=== PATIENT | female | born 1975 | race Caucasian/White ===

== ENCOUNTER → 2017-09-09 11:01 | Outpatient (POV) | payer OTHER, SELFPAY ==
[2017-09-09 11:13] VITALS: BP 147/85; PULSE 58; RESP 18
--- NOTE | 2017-09-09 13:04 | HMH.PMCON ---
Assessment and Plan (1) CRPS (complex regional pain syndrome type I) Current visit: Yes Status: Chronic Category: Medical Code(s): G90.50 - Complex regional pain syndrome I, unspecified - Assessment and plan all Dx Assessment and Plan for all problems:: The patient information on neuro stimulation. Patient is going to review the information and contact our office if she is interested in this. Patient is not a narcotic candidate at this time. This note was dictated using voice recognition software and may contain errors or omissions HPI - Data of Consult Consult date: 09/09/17 Requesting Physician: Lucía Portillo APRN Primary Care Provider: Thai Antoine - Consult Narrative Reason for consult: Bilateral foot pain History of present illness: Ms. Cope is a 42 year old female who presents today for consultation in regards to her bilateral foot pain. Patient states she fell 26 years ago and broke both of her P feet. Patient did not have any surgery. Patient did not follow-up with a advanced manufacturing consultant. Patient was seen in the ER and had one foot casted and the other one splinted. 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 Patient has been to physical therapy and is also utilized ultrasound therapy. Patient had gastric bypass surgery and lost 240 pounds. Patient states that that did help the some of her back pain along with her foot pain. Patient's tried and failed Lortab, Neurontin, Flexeril, Elavil, ibuprofen, naproxen, Zoloft. Patient was on [place] from her primary care physician however patient failed a drug screen 2 times during this time and stated that she was taking more medication than prescribed to her. Patient and I discussed that she is not a narcotic candidate. Patient and I did discuss neuro stimulation however. Patient rates her pain a 7 out of 10 today. She states elevation and relaxing helps with her pain. CC: Lucía Portillo APRN [facility] History I have reviewed the patient's past medical history: Yes Medical History: Reports:: Hypertension Other Medical History: Reports: Arthritis Laterality Cases: Left: Arthroscopy Shoulder Other Surgeries: Yes: BSO, Cholecystectomy, - *Social History Alcohol Intake: never Occupational Status: employed Housing: house - Psychiatric History Expresses thoughts of harming self/others: None Suicide Plan Description: No Plan *Family Hx:: Unable to obtain Review of Systems - Review of Systems ROS General: no recent weight change, no fever, no sleep disturbances Respiratory: no cough, no shortness of air, no recurring pulmonary infections Cardiovascular/Peripheral Vascular: No chest pain, No palpitations, no edema, no shortness of breath. Gastrointestinal: no incontinence, normal bowel movements reported Genitourinary: no incontinence Musculoskeletal: Bilateral foot pain, neck pain Psychiatric: normal mood/ affect Neurological: [denies weakness in extremities], [denies balance issues] Meds Allergies Allergy/AdvReac Type Severity Reaction Status Date / Time codeine Allergy Severe HIVES,SEVERE Unverified 03/19/17 14:09 RASH ibuprofen Allergy Severe HIVES,SEVERE Unverified 03/19/17 14:09 RASH naproxen Allergy Severe HIVES,SEVERE Unverified 03/19/17 14:09 RASH Objective Vital signs: Pulse Resp BP 58 L 18 147/85 09/09/17 11:13 09/09/17 11:13 09/09/17 11:13 Narrative: Physical Exam General: Alert and oriented x3, no acute distress, pleasant and cooperative, [on room air] Lungs: Resps E/U, Symmetrical chest expansion, Eyes: PERRL Musculoskeletal: Flexion and extension of lumbar spine somewhat guarded secondary to pain, deep tendon reflexes normal, strength in upper and lower extremities [5/5], [abnormal gait noted] Neurological: speech clear, operations intelligence superintendent equal, no gross sensory deficits Opioid Risk Tool
--- NOTE | 2017-09-09 13:07 | P.CONS_ITS ---
Assessment and Plan (1) CRPS (complex regional pain syndrome type I) Current visit: Yes Status: Chronic Category: Medical Code(s): G90.50 - Complex regional pain syndrome I, unspecified - Assessment and plan all Dx Assessment and Plan for all problems:: The patient information on neuro stimulation. Patient is going to review the information and contact our office if she is interested in this. Patient is not a narcotic candidate at this time. This note was dictated using voice recognition software and may contain errors or omissions HPI - Data of Consult Consult date: 09/09/17 Requesting Physician: Lucía Portillo APRN Primary Care Provider: Thai Antoine - Consult Narrative Reason for consult: Bilateral foot pain History of present illness: Ms. Cope is a 42 year old female who presents today for consultation in regards to her bilateral foot pain. Patient states she fell 26 years ago and broke both of her P feet. Patient did not have any surgery. Patient did not follow-up with a terminal operations manager. Patient was seen in the ER and had one foot casted and the other one splinted. 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 Patient has been to physical therapy and is also utilized ultrasound therapy. Patient had gastric bypass surgery and lost 240 pounds. Patient states that that did help the some of her back pain along with her foot pain. Patient's tried and failed Lortab, Neurontin, Flexeril, Elavil, ibuprofen, naproxen, Zoloft. Patient was on [place] from her primary care physician however patient failed a drug screen 2 times during this time and stated that she was taking more medication than prescribed to her. Patient and I discussed that she is not a narcotic candidate. Patient and I did discuss neuro stimulation however. Patient rates her pain a 7 out of 10 today. She states elevation and relaxing helps with her pain. CC: Lucía Portillo APRN [facility] History I have reviewed the patient's past medical history: Yes Medical History: Reports:: Hypertension Other Medical History: Reports: Arthritis Laterality Cases: Left: Arthroscopy Shoulder Other Surgeries: Yes: BSO, Cholecystectomy, - *Social History Alcohol Intake: never Occupational Status: employed Housing: house - Psychiatric History Expresses thoughts of harming self/others: None Suicide Plan Description: No Plan *Family Hx:: Unable to obtain Review of Systems - Review of Systems ROS General: no recent weight change, no fever, no sleep disturbances Respiratory: no cough, no shortness of air, no recurring pulmonary infections Cardiovascular/Peripheral Vascular: No chest pain, No palpitations, no edema, no shortness of breath. Gastrointestinal: no incontinence, normal bowel movements reported Genitourinary: no incontinence Musculoskeletal: Bilateral foot pain, neck pain Psychiatric: normal mood/ affect Neurological: [denies weakness in extremities], [denies balance issues] Meds Allergies Allergy/AdvReac Type Severity Reaction Status Date / Time codeine Allergy Severe HIVES,SEVERE Unverified 03/19/17 14:09 RASH ibuprofen Allergy Severe HIVES,SEVERE Unverified 03/19/17 14:09 RASH naproxen Allergy Severe HIVES,SEVERE Unverified 03/19/17 14:09 RASH Objective Vital signs: Pulse Resp BP 58 L 18 147/85 09/09/17
== END ==
PROVIDERS: PCP Internal Medicine; Visit Provider Clinical Nurse Specialist Family Health
DX: G90.50 Complex regional pain syndrome I, unspecified (principal)
CPT/HCPCS: 99202

== ENCOUNTER → 2018-10-06 12:40 | Outpatient (POV) | payer OTHER, SELFPAY | PROVIDERS: PCP Specialist; Visit Provider Specialist | DX: G90.50 Complex regional pain syndrome I, unspecified (principal); M79.609 Pain in unspecified limb; R20.2 Paresthesia of skin | CPT/HCPCS: 95886; 95910 ==

== ENCOUNTER 2018-12-23 15:00 | Outpatient (RCR) | payer OTHER, SELFPAY ==
--- NOTE | 2018-12-09 16:28 | HMH.PTOPEV ---
PT Outpatient Evaluation Rehab PT Outpatient Evaluation Start: 12/09/18 15:13 Freq: Status: Active Protocol: Document 12/09/18 15:44 PDESEROUX (Rec: 12/09/18 16:28 PDESEROUX [id number]) Electronically Signed By Porter Potts, PT 12/09/18 15:44 Outpatient Therapy Subjective History Subjective History Pt. is a 43 year old female who presents to outpatient PT for complaints of chronic and constant bilateral heel P!(R>L) of insidious onset 4 months ago. Pt. reports no symptom relief with injections and 3 bouts of steroids. Recent diagnostic imaging positive for a moderate spur on the R per pt. report. Recent NCV test negative per pt. report. Current medications include Welbutrin and Zoloft. PMH includes R shoulder arthroscopic sx., 2 C-sections , Cholecystectomy, Migraines, Anxiety, and Gastric sleeve surgery. Chief Complaint Pain Symptom Type Other Symptoms Relieved By Rest/Positioning Symptoms Aggravated By Standing,Walking Prior Functional Limitations None Current Functional Limitations Housework,Sleeping,Standing, Squatting,Recreation Activity, Walking,Stairs,Balance Symptom Description Constant and Continuous Level of pain today (0-10) 4 Pain scale - at its best (0-10) 4 Pain scale - at its worst (0-10) 6 Ankle/Foot Eval Gait Observation General Gait Pattern Observation Antalgic Gait Assistive Device Ambulation Assistive Device None Palpation Tenderness bilateral Ankle/Foot Palpation Findings Tenderness Ankle/Foot Palpation Overall Comment grade 4 +TTP bilateral achilles tendon/plantar fascia calcaneal origination ATF TTP negative PTF TTP negative CF TTP negative Deltoid ligament TTP negative ROM left Ankle/Foot Dorsiflexion w/Knee Extended +10 Active Range Motion (degrees) Ankle/Foot Dorsiflexion w/Knee Extended +3 Passive Range (degrees) Ankle/Foot Plantar Flexion Active Range 60 of Motion (degrees) Ankle/Foot Eversion Active Range of 12 Motion (degrees) Ankle/Foot Eversion P
== END 2019-01-12 14:00 | disposition home or self-care (01) ==
LOC: PT.CARL 15:00
PROVIDERS: PCP Specialist; Visit Provider Podiatrist
DX: M72.2 Plantar fascial fibromatosis (principal)
CPT/HCPCS: 97014; 97110; 97163; G0283

== ENCOUNTER → 2020-05-30 11:54 | Outpatient (POV) | payer OTHER, SELFPAY ==
[2020-05-30 12:23] VITALS: BP 100/81; PULSE 71; RESP 18; TEMP 36.8; O2SAT 98; BMI 42.9
--- NOTE | 2020-05-30 13:10 | HMH.PMCON ---
Assessment and Plan (1) CRPS (complex regional pain syndrome type I) Status: Chronic Qualifiers: Complex regional pain syndrome affected site: upper extremity Laterality: right Qualified Code(s): G90.511 - Complex regional pain syndrome I of right upper limb Category: Medical Code(s): G90.50 - Complex regional pain syndrome I, unspecified - Assessment and plan all Dx Assessment and Plan for all problems:: Patient up for a right stellate ganglion block with physical therapy following. We will also set her up with compounding cream with new gabapentin. I will follow-up with her after her block reassess her symptoms at that time. She has been instructed to call the office if she has any issues prior to her next appointment. Dr. Jacobsen has reviewed this note and agrees with this plan of care. This note was dictated using voice recognition software and may contain errors or omissions HPI - Data of Consult Consult date: 05/30/20 Requesting Physician: Lucía Portillo APRN Primary Care Provider: Flakita Sarmiento APRN - Consult Narrative Reason for consult: Hand pain History of present illness: Ms. Cope is a 45 year old female who presents today for consultation regards to her right hand pain. Patient had carpal tunnel surgery several months ago. Since then she developed an infection after this is healed she began to exhibit signs of complex regional pain syndrome. This includes allodynia, color changes, temperature changes, swelling. Patient has extreme pain and is unable to grab anything palpation is almost impossible due to her extreme pain. There are noted color changes and temperature changes to the right hand. Patient's right hand also notably swollen. Patient is unable to take gabapentin due to previous anaphylaxis. At this time she is unable to take Lyrica as well. Patient is on Wellbutrin and unable to take Cymbalta or amitriptyline. We discussed nerve blocks, compounding cream, physical therapy. She rates her pain today a 5 out of 10 CC: Lucía Portillo APRN [facility] History I have reviewed the patient's past medical history: Yes Medical History: Reports:: Anxiety, Hypertension Denies:: Cancer, Diabetes Mellitus Type 1, Diabetes Mellitus Type 2, MRSA *Have you ever received a pneumonia vaccine?: No *Have you received a flu vaccine this season?: No Other Medical History: Reports: Arthritis, Sinus Problems Laterality Cases: Right: Arthroscopy Shoulder, Bilateral: Carpal Tunnel Release Other Surgeries: Yes: BSO, Cholecystectomy, Amputation: No Fractures: Yes - *Social History Smoking Status: Never smoker Alcohol Intake: never Alcohol Intake Frequency:: holidays/special occasions only *Occupational Status:: other Housing: apartment *Travel in the last 8 weeks: None - Psychiatric History Pschychiatric History:: Reports:: Anxiety Family Hx:: Diabetes, Heart Attack, Hypertension, Hyperlipidemia Review of Systems - Review of Systems ROS General: no recent weight change, no fever, no sleep disturbances Respiratory: no cough, no shortness of air, no recurring pulmonary infections Cardiovascular/Peripheral Vascular: No chest pain, No palpitations, no edema, no shortness of breath. Gastrointestinal: no new onset incontinence, normal bowel movements reported Genitourinary: no new onset incontinence Musculoskeletal: right hand pain Psychiatric: normal mood/ affect, Neurological: Weakness right upper extremity, burning right upper extremity, color changes right upper extremity, [denies new onset balance issues] Meds Home Medications Medication Instructions Recorded Confirmed Type SUMAtriptan succinate [Imitrex 25 mg PO NEEDED PRN 09/09/17 05/30/20 History 25mg Tablet] Aspirin [Aspirin 81mg EC Tab] 81 mg PO DAILY 05/30/20 05/30/20 History Topiramate 100 mg PO BID 05/30/20 05/30/20 History Trazodone HCl 100 mg PO HS 05/30/20 05/30/20 History Vortioxetine Hydr
== END ==
PROVIDERS: PCP Nurse Practitioner; Visit Provider Clinical Nurse Specialist Family Health
DX: G90.511 Complex regional pain syndrome I of right upper limb (principal)
CPT/HCPCS: 99202; G0463

== ENCOUNTER 2020-06-03 10:23 | Day surgery (SDC) | payer OTHER, SELFPAY ==
[2020-06-03 11:31] VITALS: BP 134/66; PULSE 60; RESP 14; TEMP 36.4; O2SAT 99; BMI 42.0
[2020-06-03 11:45] VITALS: BP 133/74; BP 138/78; PULSE 84; PULSE 85; RESP 18; O2SAT 99
--- NOTE | 2020-06-03 11:49 | HMH.PMPROC ---
- Procedure Date: 06/03/20 Time: 11:49 Anesthesiologist:: Aldo Jacobsen MD Complications:: None Pre-procedure Diagnosis:: CRPS type I right upper extremity Post-procedure Diagnosis:: Same Indications for Procedure:: Patient is a pleasant 45-year-old white female who we are treating for complex regional pain syndrome type one of the right upper extremity. She has right hand pain after carpal tunnel surgery almost a year ago. She has developed autonomic symptoms of her right hand and wrist including swelling, discoloration, temperature changes and increased pain with decreased movement. She is undergone physical therapy without relief of her symptoms. We will do a stellate ganglion block of the right upper extremity today followed by physical therapy to help her with her pain symptoms. Procedure Details:: Right stellate ganglion block under fluoroscopy Informed consent was obtained risk and benefits of the procedure were explained to the patient. Patient was taken the procedure room. The right neck was prepped using ChloraPrep. A 25-gauge needle was used to contact the transverse process of the C7 vertebral body. Needle placement was confirmed with dye. After this we injected 20 mL of lidocaine 1% with Depo-Medrol 80 mg into the area of the right stellate ganglion to help with pain symptoms. Patient tolerated procedure well with no complications. We will follow this up with physical therapy today we will see her back next week we will plan on repeat right stellate ganglion block if needed. Plan and Disposition:: We will plan on repeat right stellate ganglion block if needed. We will follow up and reevaluate her symptoms at this time.
[2020-06-03 12:15] VITALS: BP 135/86; PULSE 57; RESP 18; TEMP 36.4; O2SAT 99
== END 2020-06-03 11:50 | disposition home or self-care (01) ==
LOC: SC.PAINP 10:25
PROVIDERS: PCP Nurse Practitioner; Visit Provider Anesthesiology
DX: G90.511 Complex regional pain syndrome I of right upper limb (principal); I10 Essential (primary) hypertension; M19.90 Unspecified osteoarthritis, unspecified site; F41.9 Anxiety disorder, unspecified; Z88.6 Allergy status to analgesic agent; K21.9 Gastro-esophageal reflux disease without esophagitis; F32.9 Major depressive disorder, single episode, unspecified; G43.909 Migraine, unspecified, not intractable, without status migrainosus
CPT/HCPCS: 64510; 77003; J1040; Q9966

== ENCOUNTER 2020-06-03 11:58 | Outpatient (RCR) | payer OTHER, SELFPAY ==
--- NOTE | 2020-06-03 13:39 | HMH.OTOPEV ---
OT Inpatient Evaluation Rehab OT Outpatient Eval Start: 06/03/20 13:24 Freq: Status: Active Protocol: Document 06/03/20 13:24 JOSEFA (Rec: 06/03/20 13:38 [facility] [id number][facility] Electronically Signed By Javier Powers OT 06/03/20 13:24 Outpatient Therapy Subjective History Subjective History Pt is a 45 year old female who reports to therapy for initial evaluation to R hand/ wrist. 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 Since these surgeries she has had significant nerve pain in right hand and up her right arm. Pt explains her entire hand and arm is extremely sensitive with burning/ numbness sensation. She is right handed and she is unable to use the RUE due to her symptoms. Pt does demonstrate with decreased AROM/Strength at right wrist. She recently went to pain management who have dx her with CRPS of right hand. Today pt was given Stellate ganglion block to RUE for evaluation and treatment of right hand. Pt will continue to be seen weekly in order to address all deficits. Chief Complaint Pain,Weakness,Decreased Product Development Scientist Strength Symptom Type Sharp,Burning,Numbness, Shooting Symptoms Relieved By Nothing Symptoms Aggravated By Physical Activity,Lifting Prior Functional Limitations None Current Functional Limitations Reaching,Lifting,Housework, Dressing,Sleeping,Recreation Activity Symptom Description Constant but Variable Level of pain today (0-10) 2 Pain scale - at its best (0-10) 2 Pain scale - at its worst (0-10) 10 Wrist/Hand Eval Wrist Range of Motion Right Wrist Extension Active Range of Motion ( 25 degrees degrees) Wrist Flexion Active Range of Motion ( 35 degrees degrees) Wrist Radial Deviation Active Range of 10 degrees Motion (degrees) Wrist Ulnar Deviation Active Range of 10 degrees Motion (degrees)
== END 2020-06-03 11:59 | disposition home or self-care (01) ==
LOC: OT 11:58
PROVIDERS: PCP Nurse Practitioner; Visit Provider Clinical Nurse Specialist Family Health
DX: G90.511 Complex regional pain syndrome I of right upper limb (principal)
CPT/HCPCS: 97166

== ENCOUNTER → 2020-07-18 10:31 | Outpatient (POV) | payer OTHER, SELFPAY ==
--- NOTE | 2020-07-18 11:08 | HMH.PAINSOAP ---
[facility] Pain Management SOAP Note Subjective:: Patient is a pleasant 45-year-old white female who we are treating for CRPS type one of the right upper extremity. Patient is following up after right stellate ganglion block and physical therapy. Patient got significant relief over 80%. Pain is beginning to return she would like to repeat this she rates her pain today a 5 out of 10. She has notably less swelling in that area. Patient does still have discoloration temperature changes. Patient is unable to take gabapentin or Lyrica due to anaphylactic reaction. ROS General: no recent weight change, no fever, no sleep disturbances Respiratory: no cough, no shortness of air, no recurring pulmonary infections Cardiovascular/Peripheral Vascular: No chest pain, No palpitations, no edema, no shortness of breath. Gastrointestinal: no new onset incontinence, normal bowel movements reported Genitourinary: no new onset incontinence Musculoskeletal: Right arm pain Psychiatric: normal mood/ affect Neurological: [denies new onset weakness in extremities], [denies new onset balance issues] Objective:: Physical Exam General: Alert and oriented x3, no acute distress, pleasant and cooperative, [on room air] Lungs: Resps E/U, Symmetrical chest expansion, Eyes: PERRL Musculoskeletal: Range of motion right upper extremity somewhat guarded secondary to pain, deep tendon reflexes normal, strength in upper and lower extremities [5/5], normal gait noted Neurological: speech clear, mechatronics technician equal, no gross sensory deficits Assessment:: CRPS type I right upper extremity Plan:: We will repeat the right stellate ganglion block and the physical therapy given the efficacy of this I do believe it would benefit her. I will follow-up with her afterwards reassess her symptoms at that time.if the patient does not get long-term relief we will discuss neuro stimulation. Dr. Jacobsen has reviewed this note and agrees with this plan of care. This note was dictated using voice recognition software and may contain errors or omissions [facility] History I have reviewed the patient's past medical history: Yes Medical History: Reports:: Anxiety, Hypertension Denies:: Cancer, Diabetes Mellitus Type 1, Diabetes Mellitus Type 2, MRSA, Seizures *Have you ever received a pneumonia vaccine?: No *Have you received a flu vaccine this season?: No Other Medical History: Reports: Arthritis, Sinus Problems. Denies: Blood Transfusion Reaction Laterality Cases: Right: Arthroscopy Shoulder, Bilateral: Carpal Tunnel Release Other Surgeries: Yes: BSO, Cholecystectomy, Amputation: No Fractures: Yes - *Social History Smoking Status: Never smoker Alcohol Intake: never Alcohol Intake Frequency:: holidays/special occasions only *Occupational Status:: unemployed Housing: house *Travel in the last 8 weeks: None - Psychiatric History Pschychiatric History:: Reports:: Anxiety Family Hx:: Diabetes, Heart Attack, Hypertension, Hyperlipidemia
[2020-07-18 11:12] VITALS: BP 136/79; PULSE 65; RESP 18; TEMP 37; O2SAT 98; BMI 41.3
== END ==
PROVIDERS: PCP Physician Assistant; Visit Provider Clinical Nurse Specialist Family Health
DX: G90.511 Complex regional pain syndrome I of right upper limb (principal)
CPT/HCPCS: 99212; G0463

== ENCOUNTER 2020-08-05 10:21 | Day surgery (SDC) | payer OTHER, SELFPAY ==
[2020-08-05 10:36] VITALS: BP 170/87; PULSE 91; RESP 18; TEMP 36.4; O2SAT 98; BMI 41.5
[2020-08-05 10:55] VITALS: BP 133/85; PULSE 85; RESP 18
[2020-08-05 10:57] VITALS: BP 138/89; PULSE 82; RESP 18; O2SAT 98
--- NOTE | 2020-08-05 11:02 | HMH.PMPROC ---
- Procedure Date: 08/05/20 Time: 11:02 Anesthesiologist:: Aldo Jacobsen MD Complications:: None Pre-procedure Diagnosis:: Complex regional pain syndrome type one of the right upper extremity Post-procedure Diagnosis:: Same Indications for Procedure:: This patient is a pleasant 45-year-old white female who we are treating for complex regional pain syndrome type one of the right upper extremity. She has had a right stellate ganglion block followed by physical therapy last visit. She was 80 to 90% better for several days. She did undergo physical therapy. We will do a repeat right stellate ganglion block today again followed by physical therapy to help her with her pain symptoms and autonomic symptoms Procedure Details:: Right stellate ganglion block Informed consent was obtained risk and benefits of the procedure were explained to the patient. Patient was taken the procedure room. The right neck was prepped using ChloraPrep. A 25-gauge needle was inserted to contact the right transverse process of the C7 vertebral body. Needle placement was confirmed with dye. After this we injected 20 mils lidocaine 1.5% plus Depo-Medrol 80 mg into the area of the right stellate ganglion. Patient tolerated the procedure well with no complications. Plan and Disposition:: Patient is to have physical therapy this afternoon. We will follow-up with her in 1 week. Will reevaluate her symptoms and plan on repeat stellate ganglion block at that time again to be followed by physical therapy.
[2020-08-05 11:05] VITALS: BP 121/74; PULSE 69; RESP 18; O2SAT 98
== END 2020-08-05 11:06 | disposition home or self-care (01) ==
PROVIDERS: PCP Nurse Practitioner; Visit Provider Anesthesiology
DX: G90.519 Complex regional pain syndrome I of unspecified upper limb (principal); I10 Essential (primary) hypertension; F41.9 Anxiety disorder, unspecified; G43.909 Migraine, unspecified, not intractable, without status migrainosus; Z88.6 Allergy status to analgesic agent; Z88.8 Allergy status to other drugs, medicaments and biological substances
CPT/HCPCS: 64510; 77003; J1040; Q9966

== ENCOUNTER 2020-08-05 11:09 | Outpatient (RCR) | payer OTHER, SELFPAY ==
--- NOTE | 2020-08-05 11:46 | HMH.OTOPEV ---
OT Inpatient Evaluation Rehab OT Outpatient Eval Start: 08/05/20 11:34 Freq: Status: Active Protocol: Document 08/05/20 11:34 ROULAKEYSHA (Rec: 08/05/20 11:45 SHAHNAZ [id number]) Electronically Signed By Marni Baron, OT 08/05/20 11:34 Outpatient Therapy Subjective History Subjective History 45 year old female referred to skilled OP OT services Complex regional pain syndrome type one of the right upper extremity. Patient verbalize having only pain in her right wrist. Patient has a PMH of CTR of the right wrist of July and October of 2019. Hx from pain management: This patient is a pleasant 45- year-old white female who we are treating for complex regional pain syndrome type one of the right upper extremity. She has had a right stellate ganglion block followed by physical therapy last visit. She was 80 to 90% better for several days. She did undergo physical therapy. We will do a repeat right stellate ganglion block today again followed by physical therapy to help her with her pain symptoms and autonomic symptoms. F/U with pain management on 08/25/20. Right stellate ganglion block Chief Complaint Pain,Decreased Slicing Machine Operator/Tender Strength Symptom Type Ache,Throb Symptoms Relieved By Nothing Symptoms Aggravated By Physical Activity Prior Functional Limitations Reaching,Lifting,Recreation Activity Current Functional Limitations Reaching,Lifting,Recreation Activity Symptom Description Constant and Continuous Level of pain today (0-10) 5 Pain scale - at its best (0-10) 5 Pain scale - at its worst (0-10) 7 Wrist/Hand Eval Wrist Range of Motion Right Wrist Extension Active Range of Motion ( 30 degrees) Wrist Flexion Active Range of Motion ( 30 degrees) Wrist Radial Deviation Active Range of 12 Motion (degrees) Wrist Ulnar Deviation Active Range of 10 Motion (degrees) Forearm Supination
== END 2020-08-05 11:15 | disposition home or self-care (01) ==
LOC: OT 11:09
PROVIDERS: PCP Physician Assistant; Visit Provider Clinical Nurse Specialist Family Health
DX: G90.511 Complex regional pain syndrome I of right upper limb (principal)
CPT/HCPCS: 97165

== ENCOUNTER → 2020-08-25 10:21 | Outpatient (POV) | payer OTHER, SELFPAY ==
[2020-08-25 10:36] VITALS: BP 153/78; PULSE 96; RESP 18; O2SAT 99; BMI 33.2
--- NOTE | 2020-08-25 10:55 | [facility].PAINSOAP ---
[facility] Pain Management SOAP Note Subjective:: Patient is a 45-year-old white female who presents today after a stellate block. The patient had the injection on the right side. This is her second injection. She reports that she got more relief with her initial injection in comparison to this last injection. She did contact the office for which Dr. Tapia did return her call. She is having worsening pain in her right arm and hands. She is having numbness and tingling into her right wrist and hand as well. She has had bilateral carpal tunnel releases in the past. She says she feels as though she is having ringlike numbness with the feeling of having something wrapped around her wrist and cutting off circulation . She says that this is new onset for her. She says it is occurring in bilateral hands. She is also having peripheral vision changes. She says it occurs on the right side and causes her to lose loss of peripheral vision for minutes at a time. She does have a history of migraines and is managed with Topamax and Imitrex at this time. She has tried multiple medications with no significant relief. She says that she has greater than 15 days of migraine-like headaches. She does have auras before her migraines. Does have to stay in a dark room when she develops her migraines. She has nausea, vomiting, and vision changes. She says that she has vision changes with her migraines. She is interested in possible tox injections in the future if her symptoms worsen. Her pain a 5 out of 10 today. Review of Systems General: No recent weight changes, no fever, no sleep disturbances Respiratory: No cough, no shortness of air, no recurring pulmonary infections Cardiovascular/peripheral vascular: No chest pain, no palpitations, no edema, no shortness of breath Gastrointestinal: No new onset incontinence, normal bowel movements reported Genitourinary: No new onset incontinence Musculoskeletal: Right arm pain with radiation into her bilateral wrists and hands Psychiatric: Normal mood/affect Neurological: [Denies weakness in extremities], [denies balance issues] Objective:: Physical exam General: Alert and oriented x3, no acute distress, pleasant and cooperative, [on room air] Lungs: Respirations even and unlabored, symmetrical chest expansion Eyes: PERRL Musculoskeletal: Flexion and extension of cervical spine and right upper extremity somewhat guarded secondary to pain, deep tendon reflexes normal, strength in upper and lower extremities 4/5, no gait noted Neurological: Speech clear, electric 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 Tapia, they were in agreement to proceed with right stellate ganglion block. She is not on any anticoagulation therapy. She and I also had a long discussion concerning her migraines. She has tried multiple modalities of treatment with little to no success. She has greater than 15 days of migraines. She does have aura with her migraines of nausea, vomiting, vision changes. She does have sensitivity to light as well during her migraines. She has had migraines since age 7. She may be a candidate for Botox therapy in the future. Risk and benefits of the stellate ganglion block were explained to the patient she would like to proceed. Dr. Jacobsen has reviewed this note and agrees with this plan of care. This note was dictated using voice recognition software and make contain errors or omissions. [facility] History I have reviewed the patient's past medical history: Yes Medical History: Reports:: Anxiety, Hypertension Denies:: Cancer, Diabetes Mellitus Type 1, Diabetes Mellitus Type 2, MRSA, Seizures *Have you ever received a pneumonia vaccine?: No *Have you received a flu vaccine this season?: Yes Other Medical History: Reports: Arthritis, Sinus Problems. Denies: Blood Transfusion Reaction Laterali
--- NOTE | 2020-10-20 11:15 | PC.NURSE ---
tried to notify patient of time change for injection on 10/21 [id number] will not dial out. [id number] no voicemail set up
== END ==
PROVIDERS: PCP Nurse Practitioner; Visit Provider Clinical Nurse Specialist Family Health
DX: G90.511 Complex regional pain syndrome I of right upper limb (principal)
CPT/HCPCS: 99212; G0463

== ENCOUNTER 2020-10-21 12:58 | Day surgery (SDC) | payer OTHER, SELFPAY ==
[2020-10-21 13:07] VITALS: BP 153/89; PULSE 54; RESP 18; TEMP 36.6; O2SAT 98; BMI 41.1
[2020-10-21 13:40] VITALS: BP 143/74; PULSE 60; RESP 18; O2SAT 96
[2020-10-21 13:41] VITALS: BP 143/78; PULSE 62; RESP 18; O2SAT 96
--- NOTE | 2020-10-21 13:58 | P.PCN_ITS ---
- Procedure Date: 10/21/20 Time: 13:58 Anesthesiologist:: Jessica Blood MD Complications:: None Pre-procedure Diagnosis:: CRPS type one of the right upper extremity Post-procedure Diagnosis:: Same Indications for Procedure:: This patient is a very pleasant 45-year-old white female who presents today with chronic right upper extremity pain related to the above diagnosis. She has previously undergone we will right-sided stellate ganglion injections with significant pain relief for many months. However, she states that the last injection she did not receive as much pain relief as with previous injections. She states that the pain has since returned. She is trialed and failed conservative treatment including oral pain medication and home stretching program for greater than 6 weeks. Letter today is for the patient to undergo a repeat right-sided stellate ganglion injection under fluoroscopy Procedure Details:: Informed consent was obtained. The risks and benefits of the procedure were explained to the patient. The patient was taken to the procedure room. Placed in supine position on the table. C-arm fluoroscopy was used to view the cervic al spine at the C7 transverse process. A 25-gauge needle was inserted and advanced and contact the right transverse process of the C7 vertebral body. 3 mL of contrast dye was injected to confirm proper placement of the needle. We injected 20ml injectate solution consisting of [5 mL lidocaine 1%, 5 mL bupivacaine 0.25%, 40 mg Depo-Medrol] into 10 mL syringes into the area of the right stellate ganglion. Patient tolerated the procedure well with no complications. Plan and Disposition:: Follow-up with this patient in 2 weeks. Will reevaluate pain symptoms at that time.
[2020-10-21 14:30] VITALS: BP 112/59; PULSE 47; RESP 18; O2SAT 98
== END 2020-10-21 14:30 | disposition home or self-care (01) ==
LOC: SC.PAINP 13:00
PROVIDERS: PCP Nurse Practitioner; Visit Provider Anesthesiology Pain Medicine
DX: G90.511 Complex regional pain syndrome I of right upper limb (principal); M19.90 Unspecified osteoarthritis, unspecified site; F41.9 Anxiety disorder, unspecified
CPT/HCPCS: 62321; 76000; J1030; Q9966

== ENCOUNTER 2020-10-21 14:33 | Outpatient (RCR) | payer OTHER, SELFPAY | END 2020-10-21 14:35 | disposition home or self-care (01) | LOC: OT 14:33 | PROVIDERS: PCP Nurse Practitioner; Visit Provider Anesthesiology Pain Medicine | DX: G90.511 Complex regional pain syndrome I of right upper limb (principal) | CPT/HCPCS: 97165 ==